=== PATIENT | male | born 1980 | race American Indian/Alaskan Native ===

== ENCOUNTER 2020-08-15 16:47 | Emergency (ER) | payer BC ==
[2020-08-15] MEDS ORDERED: FLUORESCEIN 1 MG STRIP OP ONE ×2 (16:58→19:06)
[2020-08-15] MEDS ORDERED: ERYTHROMYCIN 5 MG/1 GM OPHTH OINT OU ONE (16:58)
[2020-08-15] MEDS ORDERED: TETRACAINE 0.5% OPHTH SOLN 4ML OU ONE (16:58)
--- NOTE | 2020-08-15 16:58 | Event Note ---
ED Screening Note ED Screening Note: l eye pain p getting wood chip in it last week globe intact tdap utd This initial assessment/diagnostic orders/clinical plan/treatment(s) is/are subject to change based on patients health status, clinical progression and re- assessment by fellow clinical providers in the ED. Further treatment and workup at subsequent clinical providers discretion. Patient/guardian urged not to elope from the ED as their condition may be serious if not clinically assessed and managed. Initial orders include: needs espinal exam ro fb
[2020-08-15] MEDS ORDERED: TETRACAINE 0.5% OPHTH SOLN 4ML ONE (19:07)
--- NOTE | 2020-08-15 19:13 | Emergency Department Report ---
ED Eye Problem HPI - General Chief complaint: Eye Problems Stated complaint: LT EYE PAIN Time Seen by Provider: 08/15/20 16:58 Source: patient Mode of arrival: Ambulatory Limitations: No Limitations - History of Present Illness Initial comments: 40 yo comes to ER p waking this am with scratchy sensation in his eye. No drainage. He endorses chipping wood a few days back and he is concerned a piece went in his eye. He did use eye protection. No vision change Also he noted stye of eye this AM no conjunctival redness no uri chief complaint: eye injury, other -: Gradual, days(s) Onset Description: gradual Location: left eye Place: home, work If Injury: direct trauma Severity: mild Consistency: intermittent Associated Symptoms: none - Related Data Patient Tetanus UTD: Yes Previous Rx's Medication Instructions Recorded Last Taken Type Polymyxin B Sulf/Trimethoprim 2 drop OS Q4HR #1 each 08/15/20 Unknown Rx [Polytrim Eye Drops] Allergies Allergy/AdvReac Type Severity Reaction Status Date / Time No Known Allergies Allergy Unverified 08/15/20 16:55 ED Review of Systems ROS: Stated complaint: LT EYE PAIN Other details as noted in HPI Comment: All other systems reviewed and negative ED Past Medical Hx - Past Medical History Previous Medical History?: No - Surgical History Past Surgical History?: No - Family History Family history: no significant - Social History Smoking Status: Never Smoker Substance Use Type: Alcohol - Medications Home Medications: Home Medications Medication Instructions Recorded Confirmed Last Taken Type Polymyxin B Sulf/Trimethoprim 2 drop OS Q4HR #1 each 08/15/20 Unknown Rx [Polytrim Eye Drops] ED Physical Exam - General Limitations: No Limitations General appearance: alert, in no apparent distress - Head Head exam: Present: atraumatic, normocephalic - Eye Eye exam: Present: normal appearance - Expanded Eye Exam Expanded Eyelids: Stye: Left Pupils: Regular, Round: Bilateral, Reactive: Bilateral - ENT ENT exam: Present: mucous membranes moist - Neck Neck exam: Present: normal inspection - Respiratory Respiratory exam: Present: normal lung sounds bilaterally. Absent: respiratory distress - Cardiovascular Cardiovascular Exam: Present: regular rate, normal rhythm. Absent: systolic murmur, diastolic murmur, rubs, gallop - GI/Abdominal GI/Abdominal exam: Present: soft, normal bowel sounds - Rectal Rectal exam: Present: deferred - Extremities Exam Extremities exam: Present: normal inspection - Back Exam Back exam: Present: normal inspection - Neurological Exam Neurological exam: Present: alert, oriented X3 - Psychiatric Psychiatric exam: Present: normal affect, normal mood - Skin Skin exam: Present: warm, dry, intact, normal color. Absent: rash ED Course Vital Signs 08/15/20 16:56 Temperature 98.2 F Pulse Rate 81 Respiratory 18 Rate Blood Pressure 134/76 O2 Sat by Pulse 96 Oximetry - Eye Procedure Alcaine Drops Administered: Yes Eye FB Removal: other (no fb) Eye Irrigated w/ Saline (ccs): 1,000 Cyclogel 2 Drops Administered: left eye Antibiotic Oinment/Drps Admin: left eye Progress: stye noted left lateral lower lid minimal uptake flur. at 3p lateral to iris eoms intact perrl globe intact ED Medical Decision Making - Medical Decision Making eye stained see procedure note tolerated well the stye is rubbing on the eye at the same spot where the pt has a minimal uptake of fluro. I think this may be irritation. No FB noted. VA not changed tdap utd dc home with dc plan of care. Pt verbalizes understanding and will see DR Blandon if any problems between now and Wednesday. On dc pt playing with cell phone and in nad. Vital Signs 08/15/20 16:56 Temperature 98.2 F Pulse Rate 81 Respiratory 18 Rate Blood Pressure 134/76 O2 Sat by Pulse 96 Oximetry - Differential Diagnosis ro fb Critical care attestation.: If time is entered above; I have spent that time in minutes in the direct care of this critically ill patient, excluding procedure time. ED Disposition Clinical Impression: Stye, Conjunctival abrasion Disposition: DC-01 TO HOME OR SELFCARE Is pt being admited?: No Does the pt Need Aspirin: No Condition: Stable Instructions: Stye, Corneal Abrasion Additional Instructions: med as ordered today follow up with optha Wednesday if not better Motrin or tylenol for pain do not rub eye warm compresses to eye Prescriptions: Polymyxin B Sulf/Trimethoprim [Polytrim Eye Drops] 2 drop OS Q4HR #1 each Referrals: WANDA BLANDON MD [Staff Physician] - 3-5 Days Forms: Work/School Release Form(ED) Time of Disposition: 19:15
[2020-08-15 19:31] VITALS: BP 134/76
== END 2020-08-15 19:35 | disposition home or self-care (01) ==
LOC: ED 16:47
DX: S05.02XA Injury of conjunctiva and corneal abrasion without foreign body, left eye, initial encounter (principal); H00.016 Hordeolum externum left eye, unspecified eyelid; Z79.899 Other long term (current) drug therapy; X58.XXXA Exposure to other specified factors, initial encounter; Y93.89 Activity, other specified; Y92.89 Other specified places as the place of occurrence of the external cause; Y99.8 Other external cause status